=== PATIENT | male | born 1955 | race African-American/Black ===

== ENCOUNTER 2018-01-31 13:21 | Emergency (ER) | payer BC ==
[2018-01-31] MEDS ORDERED: Ketorolac Tromethamine 30 MG/ML VIAL ONE (13:48)
[2018-01-31 13:55] LABS: #Basophils 0.1 thou/uL (0.0-0.2); #Eosinphils 0.1 thou/uL (0.0-0.7); #Lymphocytes 2.5 thou/uL (1.20-3.40); #Monocytes 0.5 thou/uL (0.11-0.59); #Neutrophils 4.2 thou/uL (1.40-6.50); %Basophils 0.7 % (0.0-1.0); %Eosinophils 1.8 % (0.0-10.0); %Lymphocytes 33.7 % (21.0-51.0); %Monocytes 7.3 % (0.0-10.0); %Neutrophils 56.5 % (42.0-75.0); Hemoglobin 14.3 g/dL (14.0-18.0); Mean Corpuscular HGB CONC 32.9 g/dL (32.0-36.0); Mean Corpuscular Hemoglobin 30.7 pg (27.0-31.0); Mean Corpuscular Volume 93.5 fL (78.0-98.0); Mean Platelet Volume 7.3 fL (7.4-10.4); Platelet Count 203 thou/uL (130-400); RBC Distribution Width 11.7 % (11.5-14.5); Red Blood Cell (RBC) Count 4.65 mill/uL (4.70-6.10); White Blood Cell (WBC) Count 7.4 thou/uL (4.8-10.8)
[2018-01-31 14:10] LABS: Bilirubin Negative (Negative); Blood, Urine Negative (Negative); Clarity CLEAR (Clear); Glucose, Urine (Dipstick) Negative (Negative); Leukocyte Negative (Negative); Nitrite Negative (Negative); Protein, Urine (Dipstick) Negative (Neg-Trace); Urobilinogen 0.2 mg/dL (0.2-1.0); pH, Urine 6.5 (5.0-9.0)
[2018-01-31 14:23] LABS: CKMB 1.2 ng/mL (0-6.6); Troponin I Less than 0.010 ng/mL (< 0.028)
[2018-01-31 14:29] LABS: ALT (SGPT) 12 U/L (8-55); AST (SGOT) 17 U/L (5-34); Albumin 4.1 g/dL (3.4-4.8); Alkaline Phosphatase 79 U/L (40-150); Anion Gap 9 mmol/L (10-20); BUN (Urea Nitrogen) 14 mg/dL (8.4-25.7); Bilirubin, Total 0.4 mg/dL (0.2-1.2); Calc. Creatinine Clearance 0 mL/min (70-130); Calcium 9.3 mg/dL (7.8-10.44); Carbon Dioxide 26 mmol/L (23-31); Chloride 106 mmol/L (98-107); Estimated GFR-MDRD 45; Globulin 3.2 g/dL (2.4-3.5); Glucose 99 mg/dL (80-115); Lipase 32 U/L (8-78); Potassium 4.3 mmol/L (3.5-5.1); Protein, Total 7.3 g/dL (5.8-8.1); Sodium 137 mmol/L (136-145)
--- NOTE | 2018-01-31 15:03 | CT ---
CT OF THE ABDOMEN AND PELVIS WITHOUT IV CONTRAST: INDICATION: History of sharp abdominal pain in the right groin and hip region. COMPARISON: None. FINDINGS: The lung bases are clear. The gallbladder is surgically absent. An opacified liver, pancreas, and adrenal glands are within normal limits. The spleen is normal-appe aring. The unopacified kidneys reveal no renal or ureteral calculus. There is a normal appendix in the right lower quadrant. The bladder is partially decompressed. There are a few scattered diverticula involving the colon without evidence of active diverticulitis. There is a mild amount of retained stool within the colon. There is scattered degenerative and osteoarthritic change. No definite destructive osteolytic or ost eoblastic lesion is identified. There is some vacuum disk phenomenon and Modic end plate degenerativ e changes at L4-5. There are fat-containing inguinal hernias bilaterally, left greater than right. IMPRESSION: 1. No CT explanation for the patient's right inguinal or hip pain. 2. Cholecystectomy. 3. No renal or ureteral calculus. 4. Mild colonic diverticulosis. 5. End plate irregularity and sub-end plate sclerosis with vacuum disk phenomenon at L4-5 suspicious for changes of Modic end plate degenerative changes. No acute fracture or subluxation is evident. POS: CET
== END 2018-01-31 14:53 | disposition home or self-care (01) ==
LOC: ERS 13:21
DX: M54.16 Radiculopathy, lumbar region (principal); E78.5 Hyperlipidemia, unspecified; I10 Essential (primary) hypertension; K58.9 Irritable bowel syndrome, unspecified; Z79.899 Other long term (current) drug therapy
CPT/HCPCS: 74176; 80053; 81003; 82553; 83690; 84484; 85025; 93005; 96374; J1885

== ENCOUNTER 2019-05-30 15:16 | Outpatient (CLI) | payer BC ==
--- NOTE | 2019-05-30 16:05 | RAD ---
LEFT KNEE: 05/30/19 Three views. HISTORY: Left knee pain. FINDINGS/IMPRESSION: No fracture, dislocation or bony destruction is seen. Mild degenerative change is present. POS: TPC
--- NOTE | 2019-05-30 16:08 | RAD ---
LUMBAR SPINE TWO VIEWS: 05/30/19 HISTORY: Low back pain radiating to the left hip. FINDINGS/IMPRESSION: No fracture, subluxation, or bony destruction seen. Degenerative changes are noted most prominent at the L4-5 level. POS: TPC
--- NOTE | 2019-05-30 16:09 | RAD ---
LEFT HIP TWO VIEWS: 05/30/19 HISTORY: Left hip pain. FINDINGS/IMPRESSION: No fracture, dislocation or bony destruction seen. Joint space is fairly well maintained. No osteophy tosis is seen. POS: TPC
== END 2019-05-30 15:17 | disposition home or self-care (01) ==
LOC: SCSRAD 15:16
PROVIDERS: ATTEND Family Medicine
DX: M25.552 Pain in left hip (principal); M54.5 Low back pain; M47.816 Spondylosis without myelopathy or radiculopathy, lumbar region; M17.12 Unilateral primary osteoarthritis, left knee
CPT/HCPCS: 72100

== ENCOUNTER 2019-12-07 21:38 | Emergency (ER) | payer BC ==
[2019-12-07] MEDS ORDERED: Aspirin 325 MG TAB ONE (22:10)
[2019-12-07 22:14] LABS: #Basophils 0.1 thou/uL (0.0-0.2); #Eosinphils 0.2 thou/uL (0.0-0.7); #Lymphocytes 2.9 thou/uL (1.20-3.40); #Monocytes 0.7 thou/uL (0.11-0.59); #Neutrophils 3.7 thou/uL (1.40-6.50); %Basophils 1.2 % (0.0-1.0); %Eosinophils 2.7 % (0.0-10.0); %Lymphocytes 37.6 % (21.0-51.0); %Monocytes 9.6 % (0.0-10.0); %Neutrophils 48.9 % (42.0-75.0); Hemoglobin 14.4 g/dL (14.0-18.0); Mean Corpuscular HGB CONC 31.6 g/dL (32.0-36.0); Mean Corpuscular Hemoglobin 30.1 pg (27.0-31.0); Mean Corpuscular Volume 95.3 fL (78.0-98.0); Platelet Count 230 thou/uL (130-400); RBC Distribution Width 11.8 % (11.5-14.5); Red Blood Cell (RBC) Count 4.78 mill/uL (4.70-6.10); White Blood Cell (WBC) Count 7.7 thou/uL (4.8-10.8)
[2019-12-07 22:34] LABS: ALT (SGPT) 16 U/L (8-55); AST (SGOT) 17 U/L (5-34); Albumin 3.9 g/dL (3.4-4.8); Alkaline Phosphatase 98 U/L (40-110); Anion Gap 12 mmol/L (10-20); BUN (Urea Nitrogen) 12 mg/dL (8.4-25.7); Bilirubin, Total 0.4 mg/dL (0.2-1.2); Calc. Creatinine Clearance 0 mL/min (70-130); Calcium 9.1 mg/dL (7.8-10.44); Carbon Dioxide 23 mmol/L (23-31); Chloride 107 mmol/L (98-107); Estimated GFR-MDRD 73; Globulin 2.9 g/dL (2.4-3.5); Glucose 94 mg/dL (80-115); Potassium 3.9 mmol/L (3.5-5.1); Protein, Total 6.8 g/dL (5.8-8.1); Sodium 138 mmol/L (136-145)
--- NOTE | 2019-12-07 22:46 | RAD ---
Chest AP view INDICATION: Chest pain and left arm pain COMPARISON: None FINDINGS: Lungs: The lungs are clear Cardiac silhouette: The cardiomediastinal silhouette appears within normal limits. Pulmonary vasculature: Normal Pleural spaces: No pleural effusion or pneumothorax is demonstrated. Upper abdomen: No abnormality seen. Osseous structures: No acute osseous abnormality. Additional findings: None. IMPRESSION: No acute cardiopulmonary abnormality.
[2019-12-07] MEDS ORDERED: Ondansetron ODT 4 MG TAB ONE (22:48)
== END 2019-12-08 00:53 | disposition home or self-care (01) ==
LOC: ERS 21:38
DX: R07.9 Chest pain, unspecified (principal); R11.0 Nausea; E78.5 Hyperlipidemia, unspecified; E78.00 Pure hypercholesterolemia, unspecified; K58.9 Irritable bowel syndrome, unspecified; I10 Essential (primary) hypertension; Z79.899 Other long term (current) drug therapy
CPT/HCPCS: 36415; 71045; 80053; 84484; 85025; 93005; Q0162